=== PATIENT | male | born 1960 ===

== ENCOUNTER 2022-10-03 11:32 | Emergency (ER) | payer OTHER, SELFPAY ==
[2022-10-03 11:43] VITALS: BP 179/90; PULSE 78; RESP 18; TEMP 36.6; O2SAT 99; BMI 21.8
--- NOTE | 2022-10-03 11:51 | DI.RAD.S_ITS ---
PROCEDURE: XR TIBIA FUBULA RT 2V INDICATIONS: R anterior tib swelling, no known injury TECHNIQUE: 2 views of the tibia and fibula were acquired. COMPARISON: None. FINDINGS: Bones: No fractures or dislocations. No suspicious bony lesions. Soft tissues: No suspicious soft tissue calcifications or masses. IMPRESSION: No lower leg fracture or dislocation. No gross soft tissue abnormalities. No suspicious bony lesions. Dictated by: Cristi Daigle M.D. on 10/03/2022 at 12:08 Approved by: Cristi Daigle M.D. on 10/03/2022 at 12:11
--- NOTE | 2022-10-03 11:52 | DI.US.S_ITS ---
PROCEDURE: US PERIPH VENOUS LOW EXTREM RT INDICATIONS: SWELLING REDNESS TECHNIQUE: Real-time imaging, as well as color and pulse Doppler interrogation, were performed of the lower extremity deep veins from the inguinal ligament to the popliteal fossa. COMPARISON: None. FINDINGS: The common femoral, femoral and popliteal veins are normally compressible, and free of intraluminal thrombus. Color and pulse Doppler demonstrate normal phasic intraluminal flow. There is normal augmentation response to distal compression maneuver. In the area of interest in the right calf, there is subcutaneous edema. Enlarged right inguinal lymph node measuring 2.1 x 0.8 x 2.8 cm. IMPRESSION: 1. No deep venous thrombosis. 2. Enlarged right inguinal lymph node, nonspecific and may be reactive. 3. Subcutaneous edema is seen within the area of interest in the right calf. Dictated by: Rock Salazar M.D. on 10/03/2022 at 12:29 Approved by: Rock Salazar M.D. on 10/03/2022 at 12:31
--- NOTE | 2022-10-03 12:59 | ED_ITS ---
HPI - Skin/Abscess/Foreign Bdy General Chief complaint: Skin/Abscess/Foreign Body Stated complaint: leg wound worried infected Time Seen by Provider: 10/03/22 11:40 Source: patient Mode of arrival: Ambulatory Limitations: no limitations History of Present Illness HPI narrative: 62-year-old male nonsmoker with history of diabetes and hypertension presents for evaluation of a large blister that had formed on his right lower extremity a few days ago. He states there was no obvious trauma or injury, no burn. He is had no fever or chills. He does routinely have red, relatively swollen lower extremities and chronic venous stasis. He states that he popped the blister and there is some increased redness surrounding the region now. He admits to the drainage of some yellowish fluid Related Data Home Medications Medication Instructions Recorded Confirmed cyclobenzaprine 10 mg tablet 10 mg PO PRN ##0 12/20/12 furosemide 20 mg tablet (Lasix) 20 mg PO QDAY #0 tabs 12/20/12 lisinopril 10 mg tablet 10 mg PO QDAY #0 tabs 12/20/12 omeprazole 40 mg capsule,delayed 40 mg PO QDAY ##0 12/20/12 release prednisone 20 mg tablet 20 mg PO ##0 12/20/12 Previous Rx's Medication Instructions Recorded doxycycline hyclate 100 mg tablet 100 mg PO BID #20 tabs 10/03/22 Allergies Allergy/AdvReac Type Severity Reaction Status Date / Time sulfamethoxazole Allergy Unknown Verified 10/03/22 11:54 [From Bactrim] trimethoprim [From Bactrim] Allergy Unknown Verified 10/03/22 11:54 Review of Systems Review of Systems Narrative: GENERAL: See HPI HEENT: Denies sinus pain, ear pain, sore throat, difficulty swallowing, dizziness. RESPIRATORY: Denies dyspnea, cough, wheezing, hemoptysis, sputum. CARDIOVASCULAR: Denies chest pain, palpitations, orthopnea, edema, GASTROINTESTINAL: Denies nausea, vomiting, abdominal pain, diarrhea, constipation, melena. : Denies dysuria, frequency, incontinence, hematuria, urinary retention. MUSCULOSKELETAL: denies weakness, joint pain, or bony pain SKIN: See HPI NEUROLOGIC: Denies weakness, headache, numbness, change in speech, confusion, seizures, incoordination. PSYCHIATRIC: No concerning psychosocial issues. 12 point review of systems is negative except for those stated above Patient History Social History Smoking Status: Never smoker Smoking Status: Never smoker alcohol intake frequency: 0-2 drinks per day Substance Use Type: does not use Exam Narrative Exam Narrative: GENERAL: [62] year old patient appears older than stated age. Well-developed patient, in mild distress. HEAD: Atraumatic. Normocephalic. EYES: Pupils equal round and reactive. Extraocular motions intact. No scleral icterus. No injection or drainage. ENT: Nose without bleeding, purulent drainage. Throat without erythema, tonsillar hypertrophy or exudate. Airway patent. NECK: Trachea midline. Non tender CARDIOVASCULAR: Regular rate and rhythm without murmurs, gallops, or rubs. RESPIRATORY: Clear to auscultation. Breath sounds equal bilaterally. No wheezes, rales, or rhonchi. GASTROINTESTINAL: Abdomen soft, non-tender, nondistended. EXTREMITIES: Bilateral lower extremities with evidence of chronic venous stasis. Collapsed blister approx 3cm across on anterior R medina with drainage of serous fluid, cultured and sent to lab BACK: Nontender without deformity or crepitance. No flank tenderness. NEURO: AOx3. SKIN: No rash or erythema of visible areas Initial Vital Signs Initial Vital Signs: Vital Signs Temperature 97.8 F 10/03/22 11:43 Pulse Rate 78 10/03/22 11:43 Respiratory Rate 18 10/03/22 11:43 Blood Pressure 179/90 H 10/03/22 11:43 Pulse Oximetry 99 10/03/22 11:43 Oxygen Delivery Method Room Air 10/03/22 11:43 Course Orders Ordered: ED Orders 10/03/22 11:49 Wound Culture and Gram Stain Stat 10/03/22 11:51 XR tibia fibula RT 2V Stat 10/03/22 11:52 US periph venous low extrem rt Stat Vital Signs Vital signs: Vital Signs - 8 hr 10/03/22 11:43 Temperature 97.8 F Pulse Rate 78 Respiratory Rate 18 Blood Pressure 179/90 H Pulse Oximetry 99 Oxygen Delivery Method Room Air MDM - Skin/Abscess/Foreign Bdy Lab Data Labs: Point of Care Testing Glucose POC 92 MDM Narrative Medical decision making narrative: [62] year old patient presents with increasing redness right lower extremity with a previously fluid-filled blisters that he ruptured Multiple etiologies for patient's symptoms considered including, but not limited to: [Infection versus other] Prior Charts reviewed in our EMR Primary Historian: patient Labs reviewed and interpreted by myself: Cx pending Patient's history and physical exam are reassuring Patient's symptoms improved over duration of stay with above-stated therapies. Findings and discharge diagnosis discussed with patient/family followed by verbalization of understanding Return precautions discussed with patient/family whom verbalize understanding of diagnosis and plan Discharge Plan Departure Patient Disposition: Home Clinical Impression: Cellulitis Instructions: DI for Cellulitis -- Adult Activity Restrictions/Additional Instructions: *You have been diagnosed with [right lower extremity cellulitis. As we discussed your history and physical exam are reassuring. The x-ray shows no abnormality and ultrasound demonstrates no evidence of clot.] *What to do: *Please continue to take your regular medications as directed. [ x] New medication prescriptions sent to your pharmacy: [[facility] in [facility] ] [ ] New medication written as a paper prescription [ ] No new medications given *Please follow up with your primary care provider in 2-3 days, call for an appointment. Let them know you were seen in the Emergency Department and that we ask that you be seen in follow up. We will electronically transmit a record of today's note if your PCP is in our system *If you do not have a primary care provider please contact the [facility] Resource line at [phone]. They will ask some questions about your medical history and help get you set up with a doctor in the community. *Return to Emergency Department if you should have any new, worsening or concerning symptoms, such as [fever greater than 101 F, shaking chills, worsening pain, persistent vomiting or other bothersome symptoms] Prescriptions: New doxycycline hyclate 100 mg tablet 100 mg PO BID Qty: 20 0RF No Action lisinopril 10 MG tablet 10 mg PO QDAY Qty: 0 omeprazole 40 MG capsule,delayed release(DR/EC) 40 mg PO QDAY Qty: 0 furosemide [Lasix] 20 MG tablet 20 mg PO QDAY Qty: 0 cyclobenzaprine 10 MG tablet 10 mg PO PRN Qty: 0 prednisone 20 MG tablet 20 mg PO Qty: 0 Referrals: Kevin Jordan MD [Primary Care Provider] - Stand Alone Forms: Patient Portal/API
== END 2022-10-03 13:11 | disposition home or self-care (01) ==
PROVIDERS: Emergency Provider Emergency Medicine; PCP Family Medicine
DX: L03.115 Cellulitis of right lower limb (principal)
CPT/HCPCS: 73590; 82962; 87070; 87075; 87205; 93971; 99284